=== PATIENT | female | born 1995 | race Caucasian/White ===

== ENCOUNTER 2019-11-30 05:02 | Inpatient (IN) ==
[2019-11-30] MEDS ORDERED: HYDROcodone/ACETAMINOPHEN 1 EACH TABLET PO PRN (05:10)
[2019-11-30] MEDS ORDERED: SIMETHICONE 80 MG TAB.CHEW PO PRN (05:10)
[2019-11-30] MEDS ORDERED: ONDANSETRON HCL/PF 2 MG/ML VIAL IV PRN (05:10)
[2019-11-30] MEDS ORDERED: diphenhydrAMINE HCL 25 MG CAPSULE PO PRN (05:10)
[2019-11-30] MEDS ORDERED: OXYTOCIN 20 UNITS in RINGER'S SOLUTION,LACTATED 1,000 ML IV ONE ×4 (05:10)
[2019-11-30] MEDS ORDERED: RINGER'S SOLUTION,LACTATED 1,000 ML IV ONE (05:10)
[2019-11-30] MEDS ORDERED: SENNOSIDES 8.6 MG TABLET PO PRN (05:10)
[2019-11-30] MEDS ORDERED: BISACODYL 10 MG SUPP.RECT RC PRN (05:10)
[2019-11-30] MEDS: RINGER'S SOLUTION,LACTATED 1,000 ML IV PRN ×2 (05:25→08:45)
[2019-11-30] MEDS ORDERED: ceFAZolin SODIUM 1 GM VIAL ONE (07:17)
--- NOTE | 2019-11-30 07:23 | ANES ---
Anesthesia Pre Procedure Eval Vitals/Labs: Last Vital Signs Temp 36.2 C 11/30/19 05:11 Pulse 100 11/30/19 05:11 Resp 20 11/30/19 05:11 BP 130/89 11/30/19 05:11 Pulse Ox 98 11/30/19 05:11 Allergies/Adverse Reactions: Allergies Allergy/AdvReac Type Severity Reaction Status Date / Time No Known Allergies Allergy Verified 11/30/19 05:09 - Planned Procedure Planned Procedure: Repeat Section Medication List Reviewed:: Yes Allergies Verified: Yes Medical History (Last Reviewed 11/30/19 @ 07:22 by Fransisco Thomas CRNA) Anxiety Asthma Depression Post depression Surgical History (Last Reviewed 11/30/19 @ 07:22 by Fransisco Thomas CRNA) Previous section [id number] S/P scar revision Family History (Last Reviewed 11/30/19 @ 07:23 by Fransisco Thomas CRNA) Mother Hypoglycemia - Family Anesthesia History Family History:: no untoward family reactions to anesthesia, no familial bleeding tendencies, no family history of clotting disorders, no family history of premature - Airway/Neck/Teeth Within Normal Limits:: Yes Teeth Condition: intact Mallampatti Score: 2 Thyromental (T-M) distance: > 6 cm Mandibulo Hyoid distance: > 3 cm - Respiratory Respiratory Physical: lungs clear - Cardiovascular Tolerate Activity: Good Heart Sounds: S1 & S2, Regular - Gastrointestinal NPO since: mn - Anesthesia Assessment and Plan ASA Class: PS, II Anesthesia Type Plan: Block - Bilateral ultrasound guided TAP blocks for postop analgesia, Spinal
[2019-11-30] MEDS ORDERED: BUPIVACAINE HCL/EPINEPHRINE/PF 30 ML VIAL IJ ONE (07:25)
[2019-11-30] MEDS ORDERED: PROPOFOL VIAL IV ONE (07:26)
[2019-11-30] MEDS ORDERED: MIDAZOLAM HCL/PF 5 MG/ML VIAL ONE (07:26)
[2019-11-30] MEDS ORDERED: ONDANSETRON HCL/PF 2 MG/ML VIAL ONE (07:26)
[2019-11-30] MEDS ORDERED: fentaNYL CITRATE/PF 50 MCG/ML AMPUL ONE (07:26)
[2019-11-30] MEDS ORDERED: KETOROLAC TROMETHAMINE 30 MG/ML VIAL ONE (07:26)
--- NOTE | 2019-11-30 08:47 | OR ---
Operative Report - Dictated Report Narrative: Date of delivery: 11/30/2019 Time of delivery: 08 Gender: male APGARS: 03/07 weight: 3144 grams Preoperative diagnosis: IUP at 37w 0d, GHTN, history of delivery x2, lysis of adhesions Postoperative diagnosis: same Procedure: repeat delivery Description of the procedure: The patient was taken to the operating room where spinal anesthesia was induced. She was then prepped and draped in the supine position in the standard surgical fashion. Attention was then turned to the abdomen. A Pfannestiel skin incision was made following her prior incision. The incision was carried through the subcutaneous tissue. There was a lot of scar tissue as I was going through the fascia and an omental hernia was noted in the inferior aspect of the fascia. After multiple layers of thickness the rectus muscles were visible. The fascia was tented up with Ronda clamps in its superior aspect. The fascia was dissected off the underlying rectus muscles and the planes were not obvious. The rectus muscles were densely adherent and the anatomy was distorted with the rectus muscles favoring the patient's left side. A plane was identified at the most superior aspect of the rectus muscles to avoid injury to the bladder. The peritoneum was entered blunty with good visualization of the bowel and bladder. The omentum was adherent to the left rectus muscles and thus the omentum was dissected off without difficulty and good hemostasis. An Ervin retractor was placed in the abdomen. After placing the Ervin retractor I determined that there was not enough room to deliver the fetus and thus I removed the Ervin retractor. I reidentified the rectus muscles and dissected them away from each other on the inferior aspect of the incision taking care to identify the bladder at all times. The Ervin was replaced and now there was adequate space for delivery. The uterus was incised in the lower segment. The incision was extended bluntly. The membranes were ruptured and clear fluid was noted. The head was delivered without difficulty followed by the rest of the infant. The cord was clamped and cut and the was handed off to the awaiting pediatric staff. Cord blood was collected. The placenta was delivered by expression and appeared intact. The uterus was cleared of all clots and debris. The uterine incision was closed with 0-vicryl. A figure of eight suture was placed near the left corner of the uterine incision for additional hemostasis. The Ervin retractor was removed from the abdomen. All subfascial tissues and rectus muscles were inspected and made hemostatic as was the subcutaneous tissue. The fascia was closed with 1-0 vicryl. The subcutaneous tissue was irrigated and the space was closed with 2-0 vicryl. The skin was closed with 3-0 monocryl on a Augustus needle. [place] gee was placed over the incision. A dressing was applied to the incision. All sponge, lap, and needle counts were correct. The patient tolerated the procedure well. She was transferred to the recovery room in stable condition. History for MU Definition: * The number of deliveries resulting in a live the patient experienced prior to current hospitalization * The previous delivery of live twins or any live multiple gestation is considered one live event. *If primagravida or nulliparous is documented select zero for the number of previous live births. Live Events: 2
--- NOTE | 2019-11-30 09:06 | ANES ---
Post Anesthesia Discharge - Transfer of Care Transfer of Care handoff given to nurse: Yes - Discharge from PACU Discharge from PACU when meets criteria: Yes - Discharge to ASU Discharge to ASU-no complications/pt stable: Yes
--- NOTE | 2019-11-30 09:06 | ANES ---
Anesthesia Procedure Note Procedure Note: ANESTHESIA PROCEDURE NOTE Date of Procedure: 11/30/2019. Time of procedure: 0850. Performed by: Fransisco Thomas CRNA Hand Twister: None. Preprocedure diagnosis: Repeat . Post procedure diagnosis: Same. Procedure: Bilateral ultrasound-guided transversus abdominis plane block for postop analgesia. Indications: The patient is a 24-year-old female post section. Findings: See below. Details of the procedure: ChloraPrep was used on the patient's abdomen and the procedure was performed under sterile technique. The right abdominal fascial layer between the internal oblique muscle and the transversus abdominis muscles was identified under ultrasound guidance. A 21-gauge 4 inch block needle was inserted under ultrasound guidance to the target fascial plane. 15 mL's of 0.5% bupivacaine plus epinephrine 1:200,000 was injected after negative aspiration for blood. The needle was removed intact and the procedure was then repeated at the left side. No complications were noted. The images were retained in the hospital medical database. EBL: Minimal. Fluids: N/A. Specimen: N/A. Post procedure condition: The patient tolerated the procedure well. No complications were noted. Thank you for this consultation. Fransisco Thomas CRNA
--- NOTE | 2019-11-30 09:07 | ANES ---
Post Anesthesia Assessment - Vital Signs Vitals: Last Vital Signs Temp 36.2 C 11/30/19 05:11 Pulse 100 11/30/19 05:11 Resp 20 11/30/19 05:11 BP 130/89 11/30/19 05:11 Pulse Ox 98 11/30/19 05:11 Airway Patency: Normal - Mental Status Level Of Consciousness: Awake - Pain Level Pain Score: 8 - N/V Assessment Nausea/Vomiting Presence: None Dehydration:: No
[2019-11-30] MEDS: DOCUSATE SODIUM 100 MG CAPSULE PO SCH ×2 (10:05→20:33)
[2019-11-30] MEDS: KETOROLAC TROMETHAMINE 30 MG/ML VIAL IV PRN ×2 (10:20→16:45)
[2019-11-30] MEDS: HYDROcodone/ACETAMINOPHEN 1 EACH TABLET PO PRN (20:45)
[2019-12-01] MEDS: IBUPROFEN 800 MG TABLET PO PRN ×4 (00:28→22:14)
[2019-12-01] MEDS: HYDROcodone/ACETAMINOPHEN 1 EACH TABLET PO PRN ×7 (00:29→22:13)
[2019-12-01] MEDS ORDERED: ceFAZolin SODIUM 1 GM VIAL IV PRN (06:00)
--- NOTE | 2019-12-01 06:00 | PN ---
Subjective - Date and Time Seen Date: 12/01/19 Time: 05:58 Subjective Narrative: Patient without complaints Objective Objective Narrative: See vital signs - Review of Systems Generalized/Overall Review: Reports: No Symptoms Reported Misc: All systems neg except as marked - Vitals Vitals: Last Vital Signs Temp 36.7 C 11/30/19 23:26 Pulse 92 11/30/19 23:26 Resp 16 12/01/19 04:00 BP 130/59 11/30/19 23:26 Pulse Ox 97 11/30/19 23:26 - Exam Constitutional: Present: Alert, Oriented x3, Cooperative, No distress ENT Exam: Present: hearing grossly normal Neck: Present: normal inspection Breasts: Present: Exam deferred Respiratory: Present: no respiratory distress Abdomen: Present: soft, nontender, nondistended - dressing c/d/i /Rectal: Present: Exam deferred Extremity: Present: non-tender, no calf tenderness Skin Exam: Present: normal color, warm/dry, no cyanosis Neurologic: Present: alert, normal mood/affect, oriented x 3 Appearance: Present: appropriate appearance Eye contact: Present: cooperative, good eye contact, normal speech Thoughts: Present: normal thought pattern Cauti Physician Documentation - Urinary Catheter Management Urethral (Laurent) Urethral Indwelling: No Date of Insertion: 11/30/19 Time of Insertion: 07:30 Date of Removal: 11/30/19 Time of Removal: 20:45 Assessment/Plan Plan Narrative: POD 1 s/p repeat delivery Doing well Discharge POD 3
[2019-12-01] MEDS: DOCUSATE SODIUM 100 MG CAPSULE PO SCH ×3 (07:50→20:15)
[2019-12-02] MEDS: IBUPROFEN 800 MG TABLET PO PRN (06:26)
[2019-12-02] MEDS: HYDROcodone/ACETAMINOPHEN 1 EACH TABLET PO PRN ×2 (06:26→11:10)
--- NOTE | 2019-12-02 09:09 | PN ---
Subjective - Date and Time Seen Date: 12/02/19 Time: 09:08 Subjective Narrative: Patient without complaints Objective Objective Narrative: See vital signs - Review of Systems Generalized/Overall Review: Reports: No Symptoms Reported Misc: All systems neg except as marked - Vitals Vitals: Last Vital Signs Temp 36.3 C 12/02/19 02:22 Pulse 76 12/02/19 02:22 Resp 16 12/02/19 02:22 BP 130/70 12/02/19 02:22 Pulse Ox 100 12/02/19 02:22 - Exam Constitutional: Present: Alert, Oriented x3, Cooperative, No distress ENT Exam: Present: hearing grossly normal Neck: Present: normal inspection Abdomen: Present: soft, nontender, nondistended, no rebound tenderness Extremity: Present: non-tender, no calf tenderness Skin Exam: Present: normal color, warm/dry, no cyanosis Neurologic: Present: alert, normal mood/affect, oriented x 3 Appearance: Present: appropriate appearance, appropriate insight Eye contact: Present: cooperative, good eye contact, normal speech Thoughts: Present: normal thought pattern Cauti Physician Documentation - Urinary Catheter Management Urethral (Laurent) Urethral Indwelling: No Date of Insertion: 11/30/19 Time of Insertion: 07:30 Date of Removal: 11/30/19 Time of Removal: 20:45 Assessment/Plan Plan Narrative: POD 2 s/p repeat delivery Doing well Discharge home
[2019-12-02] MEDS: DOCUSATE SODIUM 100 MG CAPSULE PO SCH (11:10)
[2019-12-02 11:14] VITALS: BP 141/76
== END 2019-12-02 12:30 | disposition home or self-care (01) | DRG 788 ==
LOC: OB 05:02
PROVIDERS: ADMIT Obstetrics & Gynecology; ATTEND Obstetrics & Gynecology
DX: Z3A.37 37 weeks gestation of pregnancy; O34.211 Maternal care for low transverse scar from previous cesarean delivery; N85.8 Other specified noninflammatory disorders of uterus; O13.4 Gestational [pregnancy-induced] hypertension without significant proteinuria, complicating childbirth; Z37.0 Single live birth
CPT/HCPCS: 59025; 86850; 88307; 88888; J2405